=== PATIENT | female | born 1955 | race Caucasian/White ===

== ENCOUNTER → 2017-05-04 | Outpatient (CLI) | payer BC ==
--- NOTE | 2017-05-04 15:12 | REPMRS ---
Patient History The patient states she had a clinical breast exam in Patient is postmenopausal, has history of other cancer at age 56, and had first child at age 36. Family history of unknown cancer in father at age 72 and unknown cancer in maternal grandmother at age 42. Took hormonal contraceptives for 5 years. Digital Woman Screen Mammo: May 04, 2017 - Exam #: [id number] Bilateral CC and MLO view(s) were taken. Technologist: Nova Shelton, Technologist Prior study comparison: April 15, 2016, digital bilateral screening mammo, performed at [facility]. April 10, 2015, digital bilateral screening mammo, performed at [facility]. FINDINGS: There are scattered fibroglandular densities. There has been no change in the appearance of the mammogram from the prior studies. There is a mild amount of residual fibroglandular tissue which is fairly symmetric. There is no interval development of dominant mass, architectural distortion, or clustered microcalcification suggestive of malignancy. There is a benign appearing intramammary node in the upper outer quadrant of the right breast. There are scattered, small, benign calcifications of doubtful clinical significance. Scattered lymph nodes are seen in the axilla. No significant changes when compared with prior studies. ASSESSMENT: BI-RADS/ACR category 2 mammogram. Benign finding(s). Recommendation Routine screening mammogram in 1 year (for women over age 40). This mammogram was interpreted with the aid of an FDA-approved computer-aided dectection system. A. Negative x-ray reports should not delay biopsy if a dominant or clinically suspicious mass is present. B. Four to eight percent of cancers are not identified by mammography. C. Adenosis and dense breast may obscure an underlying neoplasm. Electronically Signed By: Patrice Lunsford MD 05/04/17 1013
--- NOTE | 2017-05-05 13:27 | DEXA ---
AP SPINE L1 - L4 1.258 0.5 1.7 LT FEMUR TOTAL 0.944 -0.5 0.4 RT FEMUR TOTAL 0.983 -0.2 0.7 TOTAL BODY TOTAL OTHER DUAL FEMUR FRAX* ASSESSMENT Risk factors: Family history hip fracture. 10 year probability of fracture Major osteoporotic fracture 13.3 % Hip fracture 0.3 % COMMENTS: Normal bone densitometry of the spine and hips. Normal bone densitometry of the left hip. Normal bone densitometry of the right hip. There is osteoporosis on the total body densitometry assessment. FOLLOW-UP: Recommendation for the next bone density exam: 5 years. STEPHANIE
== END ==
LOC: M WHC 08:57
PROVIDERS: ATTEND Nurse Practitioner Adult Health
DX: Z12.31 Encounter for screening mammogram for malignant neoplasm of breast (principal); M81.0 Age-related osteoporosis without current pathological fracture; Z78.0 Asymptomatic menopausal state
CPT/HCPCS: 77080; G0202

== ENCOUNTER → 2018-05-05 | Outpatient (CLI) | payer BC | LOC: M WHC 07:56 | DX: Z12.31 Encounter for screening mammogram for malignant neoplasm of breast (principal); N63.10 Unspecified lump in the right breast, unspecified quadrant | CPT/HCPCS: 77067 ==

== ENCOUNTER → 2019-04-18 | Outpatient (REF) | payer BC | LOC: M SFHCPLAZ 12:49 | PROVIDERS: ATTEND Dermatology | DX: C44.729 Squamous cell carcinoma of skin of left lower limb, including hip (principal) ==

== ENCOUNTER → 2019-05-06 | Outpatient (CLI) | payer BC ==
--- NOTE | 2019-05-06 09:13 | REP ---
BILATERAL SCREENING DIGITAL MAMMOGRAM WITH 3D TOMOSYNTHESIS: There are no palpable abnormalities or other breast complaints. The the patient states she had a clinical breast examination /2018. The the patient states she performs self-breast examinations 12 times per year. The Tyrer-Cuzick Score is: 9.8% . Comparisons are 11/04/2013, 04/15/2016 and 05/05/2018. There are scattered areas of fibroglandular density. There is no dominant mass, micro calcific cluster or architectural distortion that would indicate malignancy. There are no additional findings on 3D tomosynthesiss. There is no change from the prior study. Impression: BIRADS/ACR category 1 mammogram. Negative. Recommendation: Routine annual screening mammography. This mammogram was interpreted with the aid of a FDA approved computer-aided detection system. A. Negative mammogram reports should not delay biopsy if a dominant or clinically suspicious mass is present. B. Not all breast cancers are identified by mammography or tomosynthesis. C. Adenosis and dense breasts may obscure an underlying neoplasm. Patient letter M1. Electronically Signed by Glenn Rojas MD 05/06/2019 09:04 A
== END ==
LOC: M WHC 08:04
PROVIDERS: ATTEND Internal Medicine
DX: Z12.31 Encounter for screening mammogram for malignant neoplasm of breast (principal)

== ENCOUNTER → 2020-05-10 | Outpatient (CLI) | payer BC ==
--- NOTE | 2020-05-29 13:49 | REPMRS ---
Patient History The patient states she had a clinical breast exam in 11/2019. Patient is postmenopausal, has history of other cancer at age 56, and had first child at age 36. Family history of ovarian cancer at age 45 in maternal grandmother. Took hormonal contraceptives for 5 years. Digital Woman Screen Mammo: May 10, 2020 - Exam #: [id number] Bilateral CC and MLO view(s) were taken. Technologist: Samreen Miller, Technologist Prior study comparison: May 06, 2019, bilateral digital woman screen mammo performed at [facility]. May 05, 2018, bilateral digital woman screen mammo performed at [facility]. May 04, 2017, digital woman screen mammo performed at [facility]. FINDINGS: There are scattered fibroglandular densities. There has been no change in the appearance of the mammogram from the prior studies. There is a mild amount of scattered fibroglandular density which is fairly symmetric. There is no interval development of dominant mass, architectural distortion, or grouped microcalcification suggestive of malignancy. 3-D tomosynthesis shows no additional findings. Report was delayed due to a protracted computer network disruption experienced by this facility. Assessment: BI-RADS/ACR category 1 mammogram. Negative Mammogram. Recommendation Routine screening mammogram of both breasts in 1 year (for women over age 40). This patient's Lifetime Breast Cancer Risk is estimated at 9.7 %. This mammogram was interpreted with the aid of an FDA-approved computer-aided dectection system. Electronically Signed By: Mayito Pizarro MD 05/29/20 0373
== END ==
LOC: M WHC 07:52
PROVIDERS: ATTEND Internal Medicine
DX: Z12.31 Encounter for screening mammogram for malignant neoplasm of breast (principal)

== ENCOUNTER → 2020-07-04 | Outpatient (REF) | payer BC | LOC: M LAB REF 15:14 | PROVIDERS: ATTEND Dermatology | DX: L57.0 Actinic keratosis (principal) ==

== ENCOUNTER → 2021-03-15 | Outpatient (CLI) | payer BC ==
[~2021-03-15] MED LIST: BIMA01SOL OU; CALCCAP4 PO; LISI10TA15 PO; MULT-90 PO; OMEP40CA97 PO; TIMO0.5S29 OU
== END ==
LOC: M LABSMTC 10:47
PROVIDERS: ATTEND Anesthesiology
DX: Z01.812 Encounter for preprocedural laboratory examination (principal); Z20.822 Contact with and (suspected) exposure to COVID-19

== ENCOUNTER 2021-03-20 07:34 | Day surgery (SDC) | payer BC ==
[~2021-03-20] VITALS: Ht 165.1 cm; Wt 78.0 kg
[~2021-03-20 07:34] MED LIST changes: +NS 1,000 ML IV ONE; +OMEP40CA4 PO; -OMEP40CA97 PO
[2021-03-20] MEDS ORDERED: propofoL 200 MG/20 ML VIAL As Ordered ONE (08:56)
[2021-03-20] MEDS ORDERED: LIDOCAINE 2% 100MG/5ML SDV (FOR ANES.) As Ordered ONE (08:56)
[2021-03-20] MEDS ORDERED: fentaNYL 100 MCG/2 ML INJECTION (J3010) As Ordered ONE (08:57)
--- NOTE | 2021-03-20 09:15 | ROOR ---
Patient Name: Sharri Perez Procedure Date: 03/20/2021 8:54 AM Date of : 1955 Age: 65 Room: [facility] Gender: Female Note Status: Finalized Procedure: Upper Endoscopy + Biopsies + Balloon Dilatation Indications: Dysphagia, Heartburn, Exclusion of Parker's esophagus Providers: Waylon Garcia MD Referring MD: MADISON TORRES JR, MD Requesting Provider: Medicines: Monitored Anesthesia Care Complications: No immediate complications. Procedure: Pre-Anesthesia Assessment: - The heart rate, respiratory rate, oxygen saturations, blood pressure, adequacy of pulmonary ventilation, and response to care were monitored throughout the procedure. The Endoscope was introduced through the mouth, and advanced to the second part of duodenum. The upper GI endoscopy was accomplished without difficulty. The patient tolerated the procedure well. Findings: The Z-line was variable and was found 40 cm from the incisors. Multiple biopsies were obtained with cold forceps for evaluation to rule out Parker's Esophagus randomly at the gastroesophageal junction. A TTS dilator was passed through the scope. Dilation with an 18-19-20 mm balloon dilator was performed to 20 mm in the entire esophagus. Localized mild inflammation characterized by congestion (edema) and erosions was found on the greater curvature of the stomach. Biopsies were taken with a cold forceps for Helicobacter pylori testing. The exam of the duodenum was otherwise normal. Impression: - Z-line variable, 40 cm from the incisors. - Mucosal changes suspicious for gastritis. Biopsied. - Multiple biopsies were obtained at the gastroesophageal junction. - Dilation performed in the entire esophagus. - The examination was otherwise normal. Recommendation: - Patient has a contact number available for emergencies. The signs and symptoms of potential delayed complications were discussed with the patient. Return to normal activities tomorrow. Written discharge instructions were provided to the patient. - High fiber diet. - Discharge patient to home. - Follow an antireflux regimen. - Continue present medications. - Await pathology results. - Telephone GI clinic for pathology results in 1 week. - Repeat upper endoscopy PRN for retreatment. - Use Prilosec (omeprazole) 40 mg PO daily. - The findings and recommendations were discussed with the patient's family. Procedure Code(s): --- Professional --- 81372, Esophagogastroduodenoscopy, flexible, transoral; with transendoscopic balloon dilation of esophagus (less than 30 mm diameter) Diagnosis Code(s): --- Professional --- K22.8, Other specified diseases of esophagus K31.89, Other diseases of stomach and duodenum R13.10, Dysphagia, unspecified R12, Heartburn CPT copyright 2019 [employer]. All rights reserved. The codes documented in this report are preliminary and upon transactional paralegal review may be revised to meet current compliance requirements. Waylon Garcia MD Waylon Garcia MD 03/20/2021 9:15:12 AM Electronically signed by Waylon Garcia MD Number of Addenda: 0 Note Initiated On: 03/20/2021 8:54 AM Estimated Blood Loss: Estimated blood loss: none.
--- NOTE | 2021-03-20 09:31 | ROOR ---
Patient Name: Sharri Perez Procedure Date: 03/20/2021 8:55 AM Date of : 1955 Age: 65 Room: [facility] Gender: Female Note Status: Finalized Procedure: Total Colonoscopy to Cecum + ileoscopy Indications: Screening for colorectal malignant neoplasm Providers: Waylon Garcia MD Referring MD: MADISON TORRES JR, MD Requesting Provider: Medicines: Monitored Anesthesia Care Complications: No immediate complications. Procedure: Pre-Anesthesia Assessment: - The heart rate, respiratory rate, oxygen saturations, blood pressure, adequacy of pulmonary ventilation, and response to care were monitored throughout the procedure. The Colonoscope was introduced through the anus and advanced to the terminal ileum, with identification of the appendiceal orifice and IC valve. The colonoscopy was performed without difficulty. The patient tolerated the procedure well. The quality of the bowel preparation was excellent. Findings: The perianal and digital rectal examinations were normal. Non-bleeding internal hemorrhoids were found during retroflexion. The hemorrhoids were small and Grade I (internal hemorrhoids that do not prolapse). No other significant abnormalities were identified in a careful examination of the remainder of the colon. The exam was otherwise without abnormality on direct and retroflexion views. The terminal ileum appeared normal. The exam was otherwise without abnormality. Impression: - Non-bleeding internal hemorrhoids. - The examination was otherwise normal on direct and retroflexion views. - The examined portion of the ileum was normal. - The examination was otherwise normal. - No specimens collected. - The exam was otherwise normal to the cecum. Recommendation: - Patient has a contact number available for emergencies. The signs and symptoms of potential delayed complications were discussed with the patient. Return to normal activities tomorrow. Written discharge instructions were provided to the patient. - High fiber diet. - Discharge patient to home. - Continue present medications. - Repeat colonoscopy in 10 years for screening purposes. - Return to referring physician. - The findings and recommendations were discussed with the patient's family. Procedure Code(s): --- Professional --- 27907, Colonoscopy, flexible; diagnostic, including collection of specimen(s) by brushing or washing, when performed (separate procedure) Diagnosis Code(s): --- Professional --- Z12.11, Encounter for screening for malignant neoplasm of colon K64.0, First degree hemorrhoids CPT copyright 2019 [employer]. All rights reserved. The codes documented in this report are preliminary and upon cold storage supervisor review may be revised to meet current compliance requirements. Waylon Garcia MD Waylon Garcia MD 03/20/2021 9:31:19 AM Electronically signed by Waylon Garcia MD Number of Addenda: 0 Note Initiated On: 03/20/2021 8:55 AM Estimated Blood Loss: Estimated blood loss: none.
[2021-03-20 09:50] VITALS: BP 95/53
== END 2021-03-20 10:00 | disposition home or self-care (01) ==
LOC: M OPP 07:34
PROVIDERS: ATTEND Internal Medicine Gastroenterology
DX: Z12.11 Encounter for screening for malignant neoplasm of colon (principal); K64.0 First degree hemorrhoids; K22.8 Other specified diseases of esophagus; K31.89 Other diseases of stomach and duodenum; R13.10 Dysphagia, unspecified; Z79.82 Long term (current) use of aspirin; Z79.899 Other long term (current) drug therapy; Z80.7 Family history of other malignant neoplasms of lymphoid, hematopoietic and related tissues; Z80.0 Family history of malignant neoplasm of digestive organs
CPT/HCPCS: 43239; 43249; 45378; 88305; J3010

== ENCOUNTER → 2021-05-27 | Outpatient (CLI) | payer BC ==
[~2021-05-27] MED LIST changes: -NS 1,000 ML IV ONE
--- NOTE | 2021-05-27 09:15 | REPMRS ---
Patient History The patient states she had a clinical breast exam in November 2020. Family history of ovarian cancer at age 45 in maternal grandmother. Took hormonal contraceptives for 5 years. Tomosynthesis is performed. Volpara breast density is a. [facility] lifetime risk of breast cancer 9.3%. Pfizer vaccine 10/26/20 left arm. 11/22/20 left arm. 10 lb unintentional weight loss. Patient states no breast complaints today. Patient has signed MRS History Sheet. Digital Woman Screen Mammo: May 27, 2021 - Exam #: [id number] Bilateral CC and MLO view(s) were taken. Technologist: RT Amanda Prior study comparison: May 10, 2020, bilateral digital woman screen mammo performed at [facility]. May 06, 2019, bilateral digital woman screen mammo performed at [facility]. FINDINGS: There are scattered fibroglandular densities. There has been no change in the appearance of the mammogram from the prior studies. There is a mild amount of residual fibroglandular tissue which is fairly symmetric. There is no interval development of dominant mass, architectural distortion, or clustered microcalcification suggestive of malignancy. Assessment: BI-RADS/ACR category 1 mammogram. Negative Mammogram. Recommendation Routine screening mammogram in 1 year (for women over age 40). This mammogram was interpreted with the aid of an FDA-approved computer-aided dectection system. Electronically Signed By: Glenn Cedillo MD 05/27/21 0914
== END ==
LOC: M WHC 07:56
PROVIDERS: ATTEND Internal Medicine
DX: Z12.31 Encounter for screening mammogram for malignant neoplasm of breast (principal)

== ENCOUNTER → 2022-06-17 | Outpatient (CLI) | payer BC ==
[~2022-06-17] MED LIST changes: -LISI10TA15 PO; +LISI10TA24 PO
== END ==
LOC: M WHC 07:18
PROVIDERS: ATTEND Internal Medicine
DX: Z12.31 Encounter for screening mammogram for malignant neoplasm of breast (principal)

== ENCOUNTER → 2023-06-19 | Outpatient (CLI) | payer BC ==
[~2023-06-19] MED LIST changes: +TIMO0.5S20 OU; -TIMO0.5S29 OU
== END ==
LOC: M WHC 08:19
PROVIDERS: ATTEND Internal Medicine
DX: Z12.31 Encounter for screening mammogram for malignant neoplasm of breast (principal)

== ENCOUNTER → 2023-12-01 | Outpatient (CLI) | payer BC | LOC: M WUC 15:22 | PROVIDERS: ATTEND Nurse Practitioner Family | DX: R05.9 Cough, unspecified (principal); R06.02 Shortness of breath ==

== ENCOUNTER → 2024-03-25 | Outpatient (REF) | payer BC | LOC: M LAB REF 14:27 | PROVIDERS: ATTEND Surgery | DX: C44.619 Basal cell carcinoma of skin of left upper limb, including shoulder (principal) ==

== ENCOUNTER → 2024-05-20 | Outpatient (REF) | payer BC | LOC: M LAB REF 12:40 | PROVIDERS: ATTEND Nurse Practitioner Adult Health | DX: E83.52 Hypercalcemia (principal) ==

== ENCOUNTER → 2024-05-20 | Outpatient (CLI) | payer BC | LOC: M PLAIMG 15:16 | PROVIDERS: ATTEND Nurse Practitioner Adult Health | DX: M79.605 Pain in left leg (principal); M79.89 Other specified soft tissue disorders ==

== ENCOUNTER → 2024-05-26 | Outpatient (CLI) | payer BC | LOC: M WHC 08:11 | PROVIDERS: ATTEND Nurse Practitioner Adult Health | DX: N64.4 Mastodynia (principal) | CPT/HCPCS: 77066; G0279 ==

== ENCOUNTER → 2025-05-29 | Outpatient (CLI) | payer BC | LOC: M WHC 08:49 | PROVIDERS: ATTEND Internal Medicine | DX: Z12.31 Encounter for screening mammogram for malignant neoplasm of breast (principal) ==

== ENCOUNTER → 2025-07-05 | Outpatient (CLI) | payer BC | LOC: M WHC 08:49 | PROVIDERS: ATTEND Internal Medicine | DX: M85.851 Other specified disorders of bone density and structure, right thigh (principal) ==